=== PATIENT | female | born 1975 | race Two or more races ===

== ENCOUNTER 2021-12-23 06:36 | Day surgery (SDC) | payer OTHER ==
[~2021-12-23 06:36] MED LIST: PEPCID AC20 MG PO; SYNTHROID75 MCG PO; [UNRECOGNIZED DRUG - OTHER] PO
== END 2021-12-23 20:15 | disposition home or self-care (01) ==
LOC: CIR.AMB 06:36
PROVIDERS: ATTEND Surgery
DX: C50.812 Malignant neoplasm of overlapping sites of left female breast (principal); N60.21 Fibroadenosis of right breast; Z42.1 Encounter for breast reconstruction following mastectomy; I10 Essential (primary) hypertension; E03.9 Hypothyroidism, unspecified; E66.9 Obesity, unspecified; Z20.822 Contact with and (suspected) exposure to COVID-19

== ENCOUNTER 2022-04-28 06:00 | Day surgery (SDC) | payer OTHER ==
[~2022-04-28] VITALS: Ht 162.6 cm; Wt 70.3 kg
[~2022-04-28 06:00] MED LIST changes: +ZOLADEX3.6 MG
== END 2022-04-28 12:15 | disposition home or self-care (01) ==
LOC: CIR.AMB 06:00
PROVIDERS: ATTEND Plastic Surgery
DX: N64.81 Ptosis of breast (principal); Z90.12 Acquired absence of left breast and nipple; C50.212 Malignant neoplasm of upper-inner quadrant of left female breast; E03.9 Hypothyroidism, unspecified
CPT/HCPCS: 19316; 19325; 19342; 19371; L8600